=== PATIENT | female | born 1955 | race African-American/Black ===

== ENCOUNTER 2017-01-15 13:39 | Emergency (ER) | payer OTHER ==
[2017-01-15 13:44] VITALS: BMI 31.7
[2017-01-15 15:32] LABS: BILIRUBIN,URINE NEGATIVE (NEGATIVE); BLOOD/HEMOGLOBIN,URINE NEGATIVE (NEGATIVE); GLUCOSE, URINE NEGATIVE (NEGATIVE); KETONES,URINE NEGATIVE (NEGATIVE); LEUKOCYTE ESTERASE ,URINE 1+ (NEGATIVE); NITRITES,URINE NEGATIVE (NEGATIVE); PH,URINE 6.5 (5.0 - 8.0); PROTEIN,URINE NEGATIVE (NEGATIVE); UROBILINOGEN,URINE NORMAL (NORMAL)
--- NOTE | 2017-01-15 15:34 | DR.HTN ---
HPI - Time Seen Time seen: 17:20 - Primary Care Physician Primary Care Physician: ABDOUL - HPI Comment HPI Comment: PATIENT NOT FEELING WELL FOR FEW DAYS. WENT [facility] TO SEE PCP. BP MARKEDLY ELEVATED. GIVEN CLONIDINE AND SENT TO ED. PATIENT DID NOT TAKE HER DAILY BP MED TODAY. NO FEVER. DENIES DYSURIA. - Complaints Chief Complaint Doctors Comments: ELEVATED BLOOD PRESSURE, WEAK, NEAR SYNCOPE TODAY. Chief Complaint:: PT. C/O WEAKNESS AND HIGH BLOOD PRESSURE. PT. SEEN ANUJ FLOREZ, TODAY. PT'S B/P CHARRER WAS 229/125. PT. STATES SHE WAS GIVEN A CLONIDINE IN HER OFFICE, UNKNOWN DOSE. - Reviewed Nurses Notes Reviewed: Yes - Source History Provided: Patient - Mode of Arrival Mode of Arrival: Ambulatory - Timing Onset of Chief Complaint: 01/15/17 - Severity What was the maximum recorded B/P?: 229/125 Severity: Severe - Context Circumstances: Spontaneous Onset History of: Hypertension Treatment of HTN Prior to Arrival: Taking meds as prescribed - Associated Signs and Symptoms HTN Associated Signs and Symptoms: Weakness, Shortness of Breath PMH - PMH Past Medical History: Yes Past Medical History: Arthritis, GERD, Hypertension, Hypothyroidism Past Surgical History: Yes Surgical History: Hysterectomy - Family History History of Family Medical Conditions: Yes Family Medical History: Diabetes Mellitus, Cancer, [place], Coronary Artery Disease, Hypertension - Social History Does patient currently use any type of tobacco product: No Have you used tobacco products in the last 12 months: No Type of Tobacco Use: None Does any household member use tobacco: No Alcohol Use: None Do you use any recreational Drugs:: No Lives With: Family Lives Where: Home - infectious screening In the last 2 months have you had wt loss of >10#?: NO Have you had fever, night sweats or hemotysis?: No Have you traveled outside the country in the last 6 months?: No Isolation: Standard ROS - Review of Systems Constitutional: Weakness, Fatigue. negative: Chills, Fever Eyes: No Symptoms Reported. negative: Eye Pain, Discharge ENTM: negative: Ear Pain, Nose Discharge, Nose Congestion, Throat Pain Respiratoy: Short of Breath. negative: Productive Cough, Non-Productive Cough, Wheezing, Hemoptysis Cardiovascular: Chest Pain. negative: Edema, Palpitations, Syncope (NEAR SYNCOPE) Gastrointestinal/Abdominal: negative: Abdominal Pain, Diarrhea, Nausea, Vomiting Genitourinary: No Symptoms Reported. negative: Dysuria, Frequency, Hematuria Neurological: Weakness, Dizziness. negative: Headache Musculoskeletal: No Symptoms Reported Integumentary: No Symptoms Reported Hematologic/Lymphatic: No Symptoms Reported Endocrine: No Symptoms Reported All Other Systems: Reviewed and Negative PE - Vital Signs Vitals: Temperature 97.6 F Pulse Rate [Right Radial] 87 Pulse Rate 76 Respiratory Rate 18 Blood Pressure [Left Arm] 181/91 Blood Pressure 176/84 O2 Sat by Pulse Oximetry 100 - General Limitations: No Limitations General Appearance: Alert - Head Head Exam: Normal Inspection - Eyes Eye exam: Normal Appearance Pupils: Regular, Round: Bilateral, Reactive: Bilateral Sclera/Conjunctival: Normal Inspection: Bilateral - ENT ENT Exam: Normal Exam - Neck Neck Exam: Normal Inspection - Chest Chest Inspection: Symmetric Chest Wall Rise - Respiratory Respiratory Exam: Normal Lung Sounds Bilat Respiratory Exam: Bilateral Clear to Auscultation - Cardiovascular Cardiovascular Exam: Regular Rate, Normal Rhythm, Normal Heart Sounds - Abdominal Exam Abdominal Exam: Normal Bowel Sounds, Soft. negative: Tenderness - Extremities Extremities Exam: Normal Inspection - Back Back Exam: Normal Inspection - Neurologic Neurological Exam: Alert, Oriented X3, CN II-XII Intact, Normal Gait, Reflexes Normal. negative: Motor Sensory Deficit Speech: Fluid Speech Cranial Nerve Exam: EOM Function (II, III, IV, ): Normal, Facial Sensation (V) : Normal, Facial Palsy (VII): Normal, Gag reflex (XI): Normal, Spinal Accessory Function (XI): Normal, Tongue Deviation: Normal Cerebellar Function: Normal Gait Motor Strength - LUE: 5/5 Motor Strength - RUE: 5/5 Motor Strength - LLE: 5/5 Motor Strength - RLE: 5/5 Upper Motor Neuron Exam: Babinski Sign: Normal DTR: achilles tendon (L): 4+, achilles tendon (R): 4+, brachioradialis (L): 4+, brachioradialis (R): 4+, Patellar (L): 4+, patellar (R): 4+ - Psychiatric Psychiatric Exam: Normal Affect, Normal Mood - Skin Skin Exam: Normal Color MDM - Additional Information Obtained Additional Information Obtained From: Family - Differential Diagnosis Differential Diagnosis: Hypertensive emergency. negative: CHF (UTI, STREP INFECTION, PNEUMONIA, ) Course - Treatment Treatment: SEE ORDERS. MEDS FOR BP AND STREP GIVEN IN ED. - Education/Counseling Education/Counseling: Patient, Family, Education Educated On: Treatment, Diagnosis, Needs for Follow Up ROR - Labs Reviewed Laboratory Results Reviewed?: Yes Result Diagrams: 01/15/17 15:33 01/15/17 15:33 Laboratory: WBC 7.7 X10^3/uL (3.6-10.0) 01/15/17 15:33 RBC 4.39 X10^6/uL (3.5-5.4) 01/15/17 15:33 Hgb 13.8 g/dL (12.0-16.0) 01/15/17 15:33 Hct 40.3 % (36.0-47.0) 01/15/17 15:33 MCV 91.7 fL (80.0-100.0) 01/15/17 15:33 MCH 31.4 pg (27.0-34.0) 01/15/17 15:33 MCHC 34.2 g/dL (33.0-35.0) 01/15/17 15:33 RDW 15.2 % (11.6-16.5) 01/15/17 15:33 Plt Count 244 X10^3/uL (150.0-450.0) 01/15/17 15:33 MPV 9.1 fL (7.4-11.0) 01/15/17 15:33 Neut % 49.3 % (42.0-75.0) 01/15/17 15:33 Lymph % 40.1 % (21.0-51.0) 01/15/17 15:33 [place] % 7.9 % (0.0-13.0) 01/15/17 15:33 Eos % 1.8 % (0.9-2.9) 01/15/17 15:33 Baso % 0.9 % (0.2-1.0) 01/15/17 15:33 Neut # 3.8 x10^3/uL (2.2-4.8) 01/15/17 15:33 Lymph # 3.1 X10^3/uL (1.3-2.9) H 01/15/17 15:33 [place] # 0.6 x10^3/uL (0.3-0.8) 01/15/17 15:33 Eos # 0.1 x10^3/uL (0.0-0.2) 01/15/17 15:33 Baso # 0.1 X10^3/uL (0.0-0.1) 01/15/17 15:33 Absolute Nucleated RBC 0.0 /100WBC 01/15/17 15:33 Sodium 141 mmol/L (136-145) 01/15/17 15:33 Corrected Sodium TNP 01/15/17 15:33 Potassium 3.7 mmol/L (3.5-5.1) 01/15/17 15:33 Chloride 103 mmol/L (98-107) 01/15/17 15:33 Carbon Dioxide 27.4 mmol/L (21-32) 01/15/17 15:33 BUN 16 mg/dL (7-18) 01/15/17 15:33 Creatinine 1.17 mg/dL (0.55-1.02) H 01/15/17 15:33 Est GFR (MDRD) Af Amer > 60 (>60) 01/15/17 15:33 Est GFR (MDRD) Non-Af 50 (>60) L 01/15/17 15:33 Glucose 81 mg/dL (65-99) 01/15/17 15:33 Calcium 9.4 mg/dL (8.5-10.1) 01/15/17 15:33 Corrected Calcium TNP 01/15/17 15:33 Total Bilirubin 0.40 mg/dL (0.2-1.0) 01/15/17 15:33 AST 23 Units/L (15-37) 01/15/17 15:33 ALT 19 Units/L (12-78) 01/15/17 15:33 Alkaline Phosphatase 80 Units/L (46-116) 01/15/17 15:33 Creatine Kinase 127 Units/L (26-192) 01/15/17 17:57 CK-MB (CK-2) < 1.0 ng/mL (0-4.0) 01/15/17 17:57 CK/CKMB % Calc 0.8 % (<4) 01/15/17 17:57 Troponin I 0.07 ng/mL (0-1.5) 01/15/17 17:57 Total Protein 7.9 g/dL (6.4-8.2) 01/15/17 15:33 Albumin 3.9 g/dL (3.4-5.0) 01/15/17 15:33 Globulin 4.0 g/dL (2.5-4.5) 01/15/17 15:33 Albumin/Globulin Ratio 1.0 Ratio (1.1-2.1) L 01/15/17 15:33 Specimen Type Clean catch urine 01/15/17 15:20 Urine Color Yellow (YELLOW) 01/15/17 15:20 Urine Appearance Clear (CLEAR) 01/15/17 15:20 Urine pH 6.5 (5.0 - 8.0) 01/15/17 15:20 Ur Specific [place] 1.010 (1.000-1.030) 01/15/17 15:20 Urine Protein Negative (NEGATIVE) 01/15/17 15:20 Urine Glucose (UA) Negative (NEGATIVE) 01/15/17 15:20 Urine Ketones Negative (NEGATIVE) 01/15/17 15:20 Urine Occult Blood Negative (NEGATIVE) 01/15/17 15:20 Urine Nitrite Negative (NEGATIVE) 01/15/17 15:20 Urine Bilirubin Negative (NEGATIVE) 01/15/17 15:20 Urine Urobilinogen Normal (NORMAL) 01/15/17 15:20 Ur Leukocyte Esterase 1+ (NEGATIVE) 01/15/17 15:20 Urine RBC 0-2 /HPF (NEGATIVE) 01/15/17 15:20 Urine WBC 0-2 /HPF (NEGATIVE) 01/15/17 15:20 Ur Squamous Epith Cells Negative /HPF (NEGATIVE) 01/15/17 15:20 Urine Bacteria Trace /HPF (NEGATIVE) 01/15/17 15:20 Granular Casts Few /LPF (NEGATIVE) 01/15/17 15:20 Urine Mucus Few /HPF (NEGATIVE) 01/15/17 15:20 Ur Culture Indicated? No/not indicated 01/15/17 15:20 Influenza Type A (PCR) Negative (NEGATIVE) 01/15/17 15:36 Influenza Type B (PCR) Negative (NEGATIVE) 01/15/17 15:36 Streptococcus Screen Positive (NEGATIVE) A 01/15/17 18:58 - Diagnosis Discharge Problem: Hypertension, Strep throat - Discharge Plan Disposition: 01 HOME, SELF-CARE Condition: Stable Prescriptions: Amoxicillin [Amoxil 875 mg] 875 mg PO Q12H #20 tab - Follow ups/Referrals Follow ups/Referrals: Derik Riggins [Primary Care Provider] - 3 days - Instructions Instructions: Strep Throat, [id number], Hypertension, [id number] Additional Instructions: RETURN TO ED IF WORSE. CHECK BP DAILY, CHART AND TAKE TO PCP. CONTINUE WITH MEDS AT HOME.
[2017-01-15 15:41] LABS: APPEARANCE,URINE CLEAR (CLEAR); BACTERIA,URINE TRACE /HPF (NEGATIVE); COLOR,URINE YELLOW (YELLOW); GRANULAR CASTS,URINE FEW /LPF (NEGATIVE); MUCUS,URINE FEW /HPF (NEGATIVE); RBC,URINE 0-2 /HPF (NEGATIVE); SQUAMOUS EPITHELIAL CELL,UR NEGATIVE /HPF (NEGATIVE)
[2017-01-15 15:43] LABS: BASOPHILS # (AUTO) 0.1 X10^3/uL (0.0-0.1); BASOPHILS % (AUTO) 0.9 % (0.2-1.0); EOSINOPHILS # (AUTO) 0.1 x10^3/uL (0.0-0.2); EOSINOPHILS % (AUTO) 1.8 % (0.9-2.9); HEMATOCRIT 40.3 % (36.0-47.0); HEMOGLOBIN 13.8 g/dL (12.0-16.0); LYMPHOCYTES # (AUTO) 3.1 X10^3/uL (1.3-2.9); LYMPHOCYTES % (AUTO) 40.1 % (21.0-51.0); MEAN CORPUSCULAR HEMOGLOBIN 31.4 pg (27.0-34.0); MEAN CORPUSCULAR HGB CONC 34.2 g/dL (33.0-35.0); MEAN CORPUSCULAR VOLUME 91.7 fL (80.0-100.0); MEAN PLATELET VOLUME 9.1 fL (7.4-11.0); MONOCYTES # (AUTO) 0.6 x10^3/uL (0.3-0.8); MONOCYTES % (AUTO) 7.9 % (0.0-13.0); NEUTROPHILS # (AUTO) 3.8 x10^3/uL (2.2-4.8); NEUTROPHILS % (AUTO) 49.3 % (42.0-75.0); PLATELET COUNT 244 X10^3/uL (150.0-450.0); RED BLOOD COUNT 4.39 X10^6/uL (3.5-5.4); RED CELL DISTRIBUTION WIDTH 15.2 % (11.6-16.5); WHITE BLOOD COUNT 7.7 X10^3/uL (3.6-10.0)
[2017-01-15 16:00] LABS: BLOOD UREA NITROGEN 16 mg/dL (7-18); CALCIUM 9.4 mg/dL (8.5-10.1); CARBON DIOXIDE 27.4 mmol/L (21-32); CHLORIDE 103 mmol/L (98-107); CREATININE 1.17 mg/dL (0.55-1.02); SODIUM 141 mmol/L (136-145); TROPONIN I 0.07 ng/mL (0-1.5); eGFR BLACK RACES > 60 (>60); eGFR NON BLACK RACES 50 (>60)
[2017-01-15 16:04] LABS: ALANINE AMINOTRANSFERASE 19 Units/L (12-78); ALBUMIN 3.9 g/dL (3.4-5.0); ALKALINE PHOSPHATASE 80 Units/L (46-116); ASPARTATE AMINO TRANSFERASE 23 Units/L (15-37); CKMB % 0.7 % (<4); CREATINE KINASE 146 Units/L (26-192); CREATINE KINASE MB < 1.0 ng/mL (0-4.0); TOTAL PROTEIN 7.9 g/dL (6.4-8.2)
[2017-01-15] MEDS ORDERED: NIFEDIPINE CAP 10 MG PO ONE (16:11)
[2017-01-15] MEDS ORDERED: NIFEDIPINE CAP 10 MG ONE (16:13)
[2017-01-15 18:25] LABS: CKMB % 0.8 % (<4); CREATINE KINASE 127 Units/L (26-192); CREATINE KINASE MB < 1.0 ng/mL (0-4.0); TROPONIN I 0.07 ng/mL (0-1.5)
[2017-01-15] MEDS ORDERED: CATAPRES TAB 0.2 MG PO ONE (19:05)
[2017-01-15] MEDS ORDERED: CATAPRES TAB 0.2 MG ONE (19:06)
[2017-01-15] MEDS ORDERED: AMOXIL CAP 500 MG PO ONE ×2 (19:27→19:33)
[2017-01-15 19:45] VITALS: BP 181/91
== END 2017-01-15 19:45 | disposition home or self-care (01) ==
LOC: ER 13:51
DX: I10 Essential (primary) hypertension (principal); J02.0 Streptococcal pharyngitis
CPT/HCPCS: 36415; 80053; 81001; 82550; 82553; 84484; 85025; 87502; 87880; 93005; 99283; 99284

== ENCOUNTER 2020-12-21 09:49 | Observation (INO) ==
[2020-12-21] MEDS ORDERED: NS 1,000 ML IV 1,000 ML IV SCH (13:00)
[2020-12-21 13:25] LABS: BASOPHILS # (AUTO) 0.1 X10^3/uL (0.0-0.1); BASOPHILS % (AUTO) 0.9 % (0.2-1.0); EOSINOPHILS # (AUTO) 0.2 x10^3/uL (0.0-0.2); EOSINOPHILS % (AUTO) 3.8 % (0.9-2.9); HEMATOCRIT 38.9 % (36.0-47.0); HEMOGLOBIN 13.1 g/dL (12.0-16.0); LYMPHOCYTES # (AUTO) 3.3 X10^3/uL (1.3-2.9); LYMPHOCYTES % (AUTO) 53.7 % (21.0-51.0); MEAN CORPUSCULAR HGB CONC 33.6 g/dL (33.0-35.0); MEAN CORPUSCULAR VOLUME 95.3 fL (80.0-100.0); MEAN PLATELET VOLUME 9.3 fL (7.4-11.0); MONOCYTES # (AUTO) 0.5 x10^3/uL (0.3-0.8); MONOCYTES % (AUTO) 7.5 % (0.0-13.0); NEUTROPHILS # (AUTO) 2.1 x10^3/uL (2.2-4.8); NEUTROPHILS % (AUTO) 34.1 % (42.0-75.0); PLATELET COUNT 206 X10^3/uL (150.0-450.0); RED BLOOD COUNT 4.08 X10^6/uL (3.5-5.4); RED CELL DISTRIBUTION WIDTH 14.6 % (11.6-16.5); WHITE BLOOD COUNT 6.1 X10^3/uL (3.6-10.0)
[2020-12-21 13:34] VITALS: BMI 27.8
[2020-12-21 13:58] LABS: ALANINE AMINOTRANSFERASE 28 Units/L (12-78); ALBUMIN 3.8 g/dL (3.4-5.0); ALKALINE PHOSPHATASE 64 Units/L (46-116); ASPARTATE AMINO TRANSFERASE 22 Units/L (15-37); BLOOD UREA NITROGEN 17 mg/dL (7-18); CALCIUM 9.5 mg/dL (8.5-10.1); CARBON DIOXIDE 26.8 mmol/L (21-32); CHLORIDE 105 mmol/L (98-107); CKMB % 0.8 % (<4); CREATINE KINASE 132 Units/L (26-192); CREATINE KINASE MB < 1.0 ng/mL (0-4.0); CREATININE 1.54 mg/dL (0.55-1.02); PLATELET MORPHOLOGY COMMENT NORMAL (NORMAL); SODIUM 142 mmol/L (136-145); TOTAL PROTEIN 7.8 g/dL (6.4-8.2); TROPONIN I 0.22 ng/mL (0-1.5); eGFR NON BLACK RACES 36 (>60)
--- NOTE | 2020-12-21 14:20 | RAD ---
HISTORY:Shortness of breath, hypertensionStudy: Single view chestComparison:NoneFindings:There is cardiomegaly suspected mild interstitial edema. No effusion or pneumothorax. Soft tissues are intact.IMPRESSION:Cardiomegaly with suspected interstitial edema.Electronically signed by: VÍCTOR HOWELL (Dec 21, 2020 14:18:22)
[2020-12-21] MEDS: CATAPRES TAB 0.1 MG PO SCH ×2 (14:42→20:11)
[2020-12-21] MEDS: NORVASC TAB 10 MG PO SCH (14:42)
[2020-12-21 17:39] LABS: CREATINE KINASE 104 Units/L (26-192); CREATINE KINASE MB < 1.0 ng/mL (0-4.0); TROPONIN I 0.22 ng/mL (0-1.5)
--- NOTE | 2020-12-21 18:08 | RAD ---
History: Central line placementStudy: Single-view chestComparison: Earlier same dayFINDINGS/IMPRESSION:No CVL is visualized. Lungs are clear. No pneumothorax. Stable cardiomegaly and interstitial prominence.Electronically signed by: VÍCTOR HOWELL (Dec 21, 2020 18:06:26)
[2020-12-21] MEDS: NORCO 5/325 MG TAB PO PRN (20:11)
[2020-12-21 21:21] LABS: CKMB % 0.9 % (<4); CREATINE KINASE 116 Units/L (26-192); CREATINE KINASE MB < 1.0 ng/mL (0-4.0); TROPONIN I 0.26 ng/mL (0-1.5)
[2020-12-22] MEDS: NORCO 5/325 MG TAB PO PRN ×2 (05:14→17:38)
[2020-12-22 06:38] LABS: BASOPHILS # (AUTO) 0.1 X10^3/uL (0.0-0.1); BASOPHILS % (AUTO) 0.9 % (0.2-1.0); EOSINOPHILS # (AUTO) 0.3 x10^3/uL (0.0-0.2); EOSINOPHILS % (AUTO) 4.2 % (0.9-2.9); HEMOGLOBIN 11.3 g/dL (12.0-16.0); LYMPHOCYTES # (AUTO) 2.8 X10^3/uL (1.3-2.9); LYMPHOCYTES % (AUTO) 42.1 % (21.0-51.0); MEAN CORPUSCULAR HEMOGLOBIN 32.3 pg (27.0-34.0); MEAN CORPUSCULAR HGB CONC 34.2 g/dL (33.0-35.0); MEAN CORPUSCULAR VOLUME 94.4 fL (80.0-100.0); MEAN PLATELET VOLUME 9.2 fL (7.4-11.0); MONOCYTES # (AUTO) 0.5 x10^3/uL (0.3-0.8); MONOCYTES % (AUTO) 8.1 % (0.0-13.0); NEUTROPHILS % (AUTO) 44.7 % (42.0-75.0); PLATELET COUNT 193 X10^3/uL (150.0-450.0); RED CELL DISTRIBUTION WIDTH 14.3 % (11.6-16.5); WHITE BLOOD COUNT 6.6 X10^3/uL (3.6-10.0)
[2020-12-22 06:52] LABS: ALANINE AMINOTRANSFERASE 20 Units/L (12-78); ALBUMIN 3.2 g/dL (3.4-5.0); ALKALINE PHOSPHATASE 54 Units/L (46-116); ASPARTATE AMINO TRANSFERASE 15 Units/L (15-37); BLOOD UREA NITROGEN 20 mg/dL (7-18); CALCIUM 8.8 mg/dL (8.5-10.1); CARBON DIOXIDE 25.9 mmol/L (21-32); CHLORIDE 106 mmol/L (98-107); COR CA(FOR HYPOALB) 9.4 mg/dL (8.5-10.1); CREATINE KINASE 104 Units/L (26-192); CREATINE KINASE MB < 1.0 ng/mL (0-4.0); SODIUM 139 mmol/L (136-145); TOTAL PROTEIN 6.6 g/dL (6.4-8.2); TROPONIN I 0.29 ng/mL (0-1.5); eGFR NON BLACK RACES 37 (>60)
[2020-12-22] MEDS: NORVASC TAB 10 MG PO SCH (09:21)
[2020-12-22] MEDS: CATAPRES TAB 0.1 MG PO SCH (09:21)
--- NOTE | 2020-12-22 10:12 | DR.H&P ---
H&P - History & Physical for Day of: H&P Date: 12/21/20 - Chief Complaint Chief Complaint: SHORNESS OF BREATH - History of Present Illness History of Present Illness: IS A 65 YEAR OLD PATIENT OF OURS WHO WAS A DIRECT ADMISSION DUE TO COMPLAINTS OF SEVERE SHORTNESS OF BREATH. PATIENT REPORTS A PERSISTENT INCREASE IN SHORTNESS OF BREATH FOR THREE DAYS PRIOR TO ADMISSION. PATIENT DENIES ANY CARDIAC HISTORY OTHER THAN HTN. HER PMH INCLUDES CVA, HTN, ASTHMA, KIDNEY STONES, RENAL DISEASE, HYPOTHYROIDISM, RENAL CELL CARCINOMA, , HYSTERECTOMY, AND LEFT NEPHRECTOMY. ON ARRIVAL TO THE HOSPITAL, HER VITALS WERE 97.8-48-26-100%-216/102. LABS WERE OBTAINED. ABNORMAL LAB VALUES INCLUDE THE FOLLOWING: CREATININE 1.54, GFR 43, BNP 896. HER CARDIAC ENZYMES WERE WITHIN NORMAL LIMITS. A CHEST XRAY WAS OBTAINED AND REVEALED: CARDIOMEGALY WITH SUSPECTED INTERSTITIAL EDEMA. ECHO REVEALED: EJECTION FRACTION OF 17%, RVSP 45mmHg, MODERATE MITRAL REGURGITATION, MODERATE PULMONARY HTN. EKG REVEALED: SINUS BRADYCARDIA WITH HR 47. ON ADMISSION, SHE WAS STARTED ON NORMAL SALINE AT [facility], NORCO 5/325MG PO Q6H PRN PAIN, AND HER HOME MEDICATIONS OF CLONIDINE AND AMLODIPINE WERE RESUMED. HER BLOOD PRESSURE DECREASED TO 189/90. ON MORNING ROUNDS, PATIENT CONTINUED WITH SHORTNESS OF BREATH. HER VITALS UPON MORNING ROUNDS WERE 98.0-50-18-100%-163/86. CARDIAC ENZYMES AND EKGS WERE NORMAL THROUGHOUT THE NIGHT. HER BNP THIS MORNING WAS 566. DECISION WAS MADE TO DISCONTINUE THE AMLODIPINE AND CLONIDINE. WE STARTED LASIX 20MG IV X12H AND ENTRESTO 24/26MG PO BID. OTHERWISE, WE PLANNED TO FOLLOW UP WITH AM LABS AND CHEST XRAY AND CONTINUE TO MONITOR. TIME SPENT ON CLINICAL ASSESSMENT, REVIEWING LABS AND IMAGING, DECISION MAKING, AND DOCUMENTATION GREATER THAN 75 MINUTES. - Past Medical History Past Medical History: Arthritis, Asthma, CVA, GERD, Hypertension, Hypothyroidism, Kidney Stones, Renal Disease Additional Medical History: RENAL CELL CARCINOMA - Past Surgical History Surgical History: , Hysterectomy - Family History Family Medical History: Cancer, Coronary Artery Disease, Hypertension - Social History Does patient currently use any type of tobacco product: No Have you used tobacco products in the last 12 months: No Alcohol Use: None Drug Use: None - Medications Home Medications: No Known Drug Allergies Allergy (Verified 01/15/17 13:45) CONTINUE taking the following medications RX: alprazolam 0.5 mg PO BID PRN 12/21/20 [History] RX: cholecalciferol (vitamin D3) 50,000 unit PO WEEKLY 12/21/20 [History] RX: clonidine HCl 0.1 mg PO BID 12/21/20 [History] RX: cyclobenzaprine 10 mg PO HS 12/21/20 [History] RX: levothyroxine 100 mcg PO DAILY 12/21/20 [History] - Review of Systems Constitutional: Weakness Eyes: No Symptoms Reported ENT: No Symptoms Reported Respiratory: Shortness of Breath, SOB with Excertion Cardiovascular: No Symptoms Reported Gastrointestinal: No Symptoms Reported Genitourinary: No Symptoms Reported Musculoskeletal: No Symptoms Reported Skin: No Symptoms Reported Neurological: Weakness - Physical Exam Vital Signs: Temperature 98.0 F Pulse Rate [Left Radial] 50 Respiratory Rate 18 Blood Pressure [Left Arm] 163/86 Blood Pressure 181/91 O2 Sat by Pulse Oximetry 100 Oriented: Normal Eyes: Normal Ear: Normal Nose: Normal Throat: Normal Respiratory: Diminished Throughout Cardiovascular: Normal : Normal Auscultation: Bowel Sounds: Normal Palpation: Normal Tenderness: Normal Skin: Normal Musculoskeletal: Normal Psychiatric: Normal Mood Description: Calm Affect: Normal Speech Pattern: Clear - Assessment/Plan (1) Congestive heart failure Qualifiers: Heart failure type: unspecified Heart failure chronicity: acute Qualified Code(s): I50.9 - Heart failure, unspecified Status: Acute Plan: ADMIT, LASIX 20MG IV BID, ENTRESTO 24/26MG PO BID, CONTINUE TO MONITOR (2) Shortness of breath Status: Acute - Allergies Allergies/Adverse Reactions: Allergies Allergy/AdvReac Type Severity Reaction Status Date / Time No Known Drug Allergies Allergy Verified 01/15/17 13:45
[2020-12-22] MEDS: ENTRESTO 24/26 MG TAB PO SCH ×2 (13:45→20:36)
[2020-12-22] MEDS: LASIX IVP SCH ×2 (13:46→17:20)
[2020-12-22] MEDS: SYNTHROID 100 mcg TAB PO SCH (16:10)
[2020-12-22] MEDS: MORPHINE SULFATE INJ 2 MG INJ IVP PRN (20:42)
--- NOTE | 2020-12-23 05:43 | RAD ---
PROCEDURE: Chest X-ray 1 View .HISTORY: SEVERE SHORTNESS OF BREATH .TECHNIQUE: AP portable done at 5:03 a.m..COMPARISON: 12/21/2020.TECHNICAL QUALITY: Satisfactory .FINDINGS:Normal size heart .Mediastinum and hilar regions show no masses or lymphadenopathy .Normal central vascularity .No pulmonary consolidation, masses, pleural fluid, or pneumothorax .No acute bony abnormality .IMPRESSION:No active cardiopulmonary disease .Electronically signed by: Ha Curiel (Dec 23, 2020 05:41:33)
[2020-12-23 06:11] LABS: BASOPHILS # (AUTO) 0.1 X10^3/uL (0.0-0.1); EOSINOPHILS # (AUTO) 0.3 x10^3/uL (0.0-0.2); EOSINOPHILS % (AUTO) 4.4 % (0.9-2.9); HEMATOCRIT 37.6 % (36.0-47.0); HEMOGLOBIN 12.7 g/dL (12.0-16.0); LYMPHOCYTES # (AUTO) 2.7 X10^3/uL (1.3-2.9); LYMPHOCYTES % (AUTO) 46.1 % (21.0-51.0); MEAN CORPUSCULAR HEMOGLOBIN 31.8 pg (27.0-34.0); MEAN CORPUSCULAR HGB CONC 33.7 g/dL (33.0-35.0); MEAN CORPUSCULAR VOLUME 94.4 fL (80.0-100.0); MEAN PLATELET VOLUME 8.7 fL (7.4-11.0); MONOCYTES # (AUTO) 0.5 x10^3/uL (0.3-0.8); MONOCYTES % (AUTO) 8.7 % (0.0-13.0); NEUTROPHILS # (AUTO) 2.3 x10^3/uL (2.2-4.8); NEUTROPHILS % (AUTO) 39.8 % (42.0-75.0); PLATELET COUNT 218 X10^3/uL (150.0-450.0); RED BLOOD COUNT 3.98 X10^6/uL (3.5-5.4); WHITE BLOOD COUNT 5.8 X10^3/uL (3.6-10.0)
[2020-12-23 06:37] LABS: ALANINE AMINOTRANSFERASE 19 Units/L (12-78); ALBUMIN 3.4 g/dL (3.4-5.0); ALKALINE PHOSPHATASE 58 Units/L (46-116); ASPARTATE AMINO TRANSFERASE 8 Units/L (15-37); BLOOD UREA NITROGEN 19 mg/dL (7-18); CALCIUM 8.6 mg/dL (8.5-10.1); CARBON DIOXIDE 28.2 mmol/L (21-32); CHLORIDE 104 mmol/L (98-107); CREATININE 1.36 mg/dL (0.55-1.02); SODIUM 140 mmol/L (136-145); TOTAL PROTEIN 7.1 g/dL (6.4-8.2); eGFR NON BLACK RACES 41 (>60)
[2020-12-23] MEDS: SYNTHROID 100 mcg TAB PO SCH (06:46)
[2020-12-23] MEDS: LASIX IVP SCH ×2 (09:23→18:09)
[2020-12-23] MEDS: ENTRESTO 24/26 MG TAB PO SCH ×2 (09:23→21:02)
[2020-12-23] MEDS: MORPHINE SULFATE INJ 2 MG INJ IVP PRN ×2 (13:43→21:03)
[2020-12-23] MEDS: CATAPRES TAB 0.1 MG PO SCH ×2 (13:43→21:02)
[2020-12-23] MEDS: XANAX PO PRN (21:02)
[2020-12-24 04:52] LABS: BASOPHILS # (AUTO) 0.1 X10^3/uL (0.0-0.1); EOSINOPHILS # (AUTO) 0.2 x10^3/uL (0.0-0.2); EOSINOPHILS % (AUTO) 3.5 % (0.9-2.9); HEMATOCRIT 37.7 % (36.0-47.0); LYMPHOCYTES # (AUTO) 2.8 X10^3/uL (1.3-2.9); LYMPHOCYTES % (AUTO) 44.7 % (21.0-51.0); MEAN CORPUSCULAR HEMOGLOBIN 32.2 pg (27.0-34.0); MEAN CORPUSCULAR HGB CONC 34.4 g/dL (33.0-35.0); MEAN CORPUSCULAR VOLUME 93.5 fL (80.0-100.0); MEAN PLATELET VOLUME 8.6 fL (7.4-11.0); MONOCYTES # (AUTO) 0.6 x10^3/uL (0.3-0.8); MONOCYTES % (AUTO) 9.7 % (0.0-13.0); NEUTROPHILS # (AUTO) 2.6 x10^3/uL (2.2-4.8); NEUTROPHILS % (AUTO) 41.1 % (42.0-75.0); PLATELET COUNT 212 X10^3/uL (150.0-450.0); RED BLOOD COUNT 4.03 X10^6/uL (3.5-5.4); WHITE BLOOD COUNT 6.3 X10^3/uL (3.6-10.0)
[2020-12-24 05:00] LABS: ALANINE AMINOTRANSFERASE 16 Units/L (12-78); ALBUMIN 3.2 g/dL (3.4-5.0); ALKALINE PHOSPHATASE 58 Units/L (46-116); ASPARTATE AMINO TRANSFERASE 10 Units/L (15-37); BLOOD UREA NITROGEN 27 mg/dL (7-18); CHLORIDE 102 mmol/L (98-107); COR CA(FOR HYPOALB) 9.6 mg/dL (8.5-10.1); CREATININE 1.77 mg/dL (0.55-1.02); SODIUM 138 mmol/L (136-145); TOTAL PROTEIN 6.9 g/dL (6.4-8.2); eGFR NON BLACK RACES 31 (>60)
[2020-12-24] MEDS: SYNTHROID 100 mcg TAB PO SCH (05:46)
[2020-12-24] MEDS: CATAPRES TAB 0.1 MG PO SCH ×2 (09:33→20:52)
[2020-12-24] MEDS: LASIX IVP SCH ×2 (09:33→16:58)
[2020-12-24] MEDS: ENTRESTO 24/26 MG TAB PO SCH ×2 (09:33→20:00)
--- NOTE | 2020-12-24 09:55 | RAD ---
HISTORYSEVERE SHORTNESS OF BREATH Relevant Clinical InformationSTUDYCHEST, 1 VIEWCOMPARISONPortable chest December 23, 2020.FINDINGSThe trachea is midline. The cardiac silhouette is unremarkable. The lungs are clear without focal infiltrate or effusion but there is a new small loculated pneumothorax in the right lung base pleural separation is a maximum of 1.6 cm.. The bony thorax is unremarkable. A right-sided central venous catheter has been placed. The tip is in the right atrium. The catheter was present on yesterday's exam as well as prior exam December 21, 2020.IMPRESSIONNew small loculated pneumothorax right lung base less than 5 percent without tension. Report will be called to the ordering clinician or nurse by [facility] staff.Electronically signed by: KATHIA MENSAH (Dec 24, 2020 09:10:22)
[2020-12-24] MEDS: MORPHINE SULFATE INJ 2 MG INJ IVP PRN (20:00)
[2020-12-24] MEDS: XANAX PO PRN (23:33)
[2020-12-25 05:26] LABS: BASOPHILS # (AUTO) 0.1 X10^3/uL (0.0-0.1); BASOPHILS % (AUTO) 1.1 % (0.2-1.0); EOSINOPHILS # (AUTO) 0.3 x10^3/uL (0.0-0.2); EOSINOPHILS % (AUTO) 4.2 % (0.9-2.9); HEMATOCRIT 35.7 % (36.0-47.0); HEMOGLOBIN 12.3 g/dL (12.0-16.0); LYMPHOCYTES % (AUTO) 46.7 % (21.0-51.0); MEAN CORPUSCULAR HEMOGLOBIN 32.2 pg (27.0-34.0); MEAN CORPUSCULAR HGB CONC 34.6 g/dL (33.0-35.0); MEAN CORPUSCULAR VOLUME 93.1 fL (80.0-100.0); MEAN PLATELET VOLUME 8.6 fL (7.4-11.0); MONOCYTES # (AUTO) 0.6 x10^3/uL (0.3-0.8); MONOCYTES % (AUTO) 9.7 % (0.0-13.0); NEUTROPHILS # (AUTO) 2.4 x10^3/uL (2.2-4.8); NEUTROPHILS % (AUTO) 38.3 % (42.0-75.0); PLATELET COUNT 201 X10^3/uL (150.0-450.0); RED BLOOD COUNT 3.83 X10^6/uL (3.5-5.4); RED CELL DISTRIBUTION WIDTH 14.1 % (11.6-16.5); WHITE BLOOD COUNT 6.4 X10^3/uL (3.6-10.0)
[2020-12-25] MEDS: SYNTHROID 100 mcg TAB PO SCH (05:29)
[2020-12-25 05:43] LABS: CALCIUM 8.6 mg/dL (8.5-10.1); CARBON DIOXIDE 28.9 mmol/L (21-32); COR CA(FOR HYPOALB) 9.4 mg/dL (8.5-10.1); CREATININE 1.65 mg/dL (0.55-1.02); TOTAL PROTEIN 6.5 g/dL (6.4-8.2)
--- NOTE | 2020-12-25 05:46 | RAD ---
PROCEDURE: Chest X-ray 1 View .HISTORY: Dyspnea.TECHNIQUE: AP view .COMPARISON: 12/24/2020.TECHNICAL QUALITY: Satisfactory .FINDINGS:Normal size heart .Mediastinum and hilar regions show no masses or lymphadenopathy .Normal central vascularity .No pulmonary consolidation, masses, pleural fluid, or pneumothorax .No acute bony abnormality .IMPRESSION:No active cardiopulmonary disease .Electronically signed by: Ha Curiel (Dec 25, 2020 05:44:26)
--- NOTE | 2020-12-25 08:23 | PCM.PROG ---
Progress Note Progress Note for Day of Date of Exam: 12/23/20 Subjective Subjective: IS A 65 YEAR OLD PATIENT OF DR SCHREIBER, WHO WAS A DIRECT ADMISSION FOR CHF EXACERBATION WITHOUT PRIOR CARDIAC HISTORY OTHER THAN HTN. HER PMH INCLUDES CVA, HTN, ASTHMA, KIDNEY STONES, RENAL DISEASE, HYPOTHYROIDISM, RENAL CELL CARCINOMA, , HYSTERECTOMY, AND LEFT NEPHRECTOMY. THIS MORNING SHE REPORTS STILL HAVING SOME SHORTNESS OF BREATH. LABS/IMAGING: WBC 5.8, HGB 12.7, PLT 218, NA 140, K 3.7, CREATININE 1.36, GLUCOSE 92, A CHEST XRAY WAS OBTAINED AND REVEALED: NO ACTIVE CARDIOPULMONARY DISEASE. ECHO REVEALED: EJECTION FRACTION OF 17%, RVSP 45mmHg, MODERATE MITRAL REGURGITATION, MODERATE PULMONARY HTN. PT IS CURRENTLY ON NORMAL SALINE AT [facility], NORCO 5/325MG PO Q6H PRN PAIN, AND HER HOME MEDICATIONS OF CLONIDINE. SHE IS RECEIVING LASIX 20MG IV X12H AND WAS STARTED ON ENTRESTO 24/26MG PO BID. OTHERWISE, WE PLANNED TO FOLLOW UP WITH AM LABS AND CHEST XRAY AND CONTINUE TO MONITOR. Past Medical Family Social History Past Med/Fam/Surg Hx: No changes since H&P Allergies: Allergies No Known Drug Allergies Allergy (Verified 01/15/17 13:45) Review of Systems ROS: No change since H&P Vital Signs and I&O's Vital Signs: Temperature 98.6 F Pulse Rate [Radial] 67 Pulse Rate [Left Radial] 51 Respiratory Rate 18 Blood Pressure [Right Arm] 130/85 Blood Pressure [Left Arm] 178/91 Blood Pressure 181/91 O2 Sat by Pulse Oximetry 97 Intake and Output: Intake & Output 12/22/20 12/23/20 12/24/20 12/25/20 23:59 23:59 23:59 23:59 Intake Total 1460 / 1460 2640 / 2640 1430 / 1430 1370 / 1370 Balance 1460 / 1460 2640 / 2640 1430 / 1430 1370 / 1370 Physical Exam Oriented: Normal Eyes: Normal Ear: Normal Nose: Normal Throat: Normal Respiratory: Diminished Cardiovascular: Normal : Normal Auscultation: Bowel Sounds: Normal Tenderness: Normal Skin: Normal Musculoskeletal: Normal Psychiatric: Normal Mood Description: Calm Affect: Normal Speech Pattern: Clear and Appropriate Laboratory and Diagnostics Result Diagrams: 12/25/20 04:52 12/25/20 04:52 Labs: Laboratory WBC 6.4 X10^3/uL (3.6-10.0) 12/25/20 04:52 RBC 3.83 X10^6/uL (3.5-5.4) 12/25/20 04:52 Hgb 12.3 g/dL (12.0-16.0) 12/25/20 04:52 Hct 35.7 % (36.0-47.0) L 12/25/20 04:52 MCV 93.1 fL (80.0-100.0) 12/25/20 04:52 MCH 32.2 pg (27.0-34.0) 12/25/20 04:52 MCHC 34.6 g/dL (33.0-35.0) 12/25/20 04:52 RDW 14.1 % (11.6-16.5) 12/25/20 04:52 Plt Count 201 X10^3/uL (150.0-450.0) 12/25/20 04:52 Plt Count Comment Adequate (ADEQUATE) 12/21/20 13:09 MPV 8.6 fL (7.4-11.0) 12/25/20 04:52 Neut % (Auto) 38.3 % (42.0-75.0) L 12/25/20 04:52 Lymph % (Auto) 46.7 % (21.0-51.0) 12/25/20 04:52 [place] % (Auto) 9.7 % (0.0-13.0) 12/25/20 04:52 Eos % (Auto) 4.2 % (0.9-2.9) H 12/25/20 04:52 Baso % (Auto) 1.1 % (0.2-1.0) H 12/25/20 04:52 Neut # (Auto) 2.4 x10^3/uL (2.2-4.8) 12/25/20 04:52 Lymph # (Auto) 3.0 X10^3/uL (1.3-2.9) H 12/25/20 04:52 [place] # (Auto) 0.6 x10^3/uL (0.3-0.8) 12/25/20 04:52 Eos # (Auto) 0.3 x10^3/uL (0.0-0.2) H 12/25/20 04:52 Baso # (Auto) 0.1 X10^3/uL (0.0-0.1) 12/25/20 04:52 Absolute Nucleated RBC 0.1 /100WBC 12/25/20 04:52 Total Counted 100 12/21/20 13:09 Neutrophils % (Manual) 35 % (39-76) L 12/21/20 13:09 Lymphocytes % (Manual) 59 % (13-43) H 12/21/20 13:09 Monocytes % (Manual) 5 % (4-9) 12/21/20 13:09 Eosinophils % (Manual) 1 % (0-6) 12/21/20 13:09 Plt Morphology Comment Normal (NORMAL) 12/21/20 13:09 RBC Morphology Normal (NORMAL) 12/21/20 13:09 Sodium 140 mmol/L (136-145) 12/25/20 04:52 Corrected Sodium 140 mmol/L (136-145) 12/25/20 04:52 Potassium 3.4 mmol/L (3.5-5.1) L 12/25/20 04:52 Chloride 103 mmol/L (98-107) 12/25/20 04:52 Carbon Dioxide 28.9 mmol/L (21-32) 12/25/20 04:52 BUN 30 mg/dL (7-18) H 12/25/20 04:52 Creatinine 1.65 mg/dL (0.55-1.02) H 12/25/20 04:52 Est GFR (MDRD) Af Amer 40 (>60) L 12/25/20 04:52 Est GFR (MDRD) Non-Af 33 (>60) L 12/25/20 04:52 Glucose 118 mg/dL (65-99) H 12/25/20 04:52 Calcium 8.6 mg/dL (8.5-10.1) 12/25/20 04:52 Corrected Calcium 9.4 mg/dL (8.5-10.1) 12/25/20 04:52 Magnesium 1.9 mg/dL (1.7-2.9) 12/25/20 04:52 Total Bilirubin 0.20 mg/dL (0.2-1.0) 12/25/20 04:52 AST 13 Units/L (15-37) L 12/25/20 04:52 ALT 16 Units/L (12-78) 12/25/20 04:52 Alkaline Phosphatase 62 Units/L (46-116) 12/25/20 04:52 Creatine Kinase 104 Units/L (26-192) 12/22/20 05:56 CK-MB (CK-2) < 1.0 ng/mL (0-4.0) 12/22/20 05:56 CK/CKMB % Calc 1.0 % (<4) 12/22/20 05:56 Troponin I 0.29 ng/mL (0-1.5) 12/22/20 05:56 B-Natriuretic Peptide 103 pg/mL (0-79) H 12/25/20 04:52 Total Protein 6.5 g/dL (6.4-8.2) 12/25/20 04:52 Albumin 3.0 g/dL (3.4-5.0) L 12/25/20 04:52 Globulin 3.5 g/dL (2.5-4.5) 12/25/20 04:52 Albumin/Globulin Ratio 0.9 Ratio (1.1-2.1) L 12/25/20 04:52 SARS-CoV-2 (PCR) Negative (NEGATIVE) 12/21/20 11:17 Influenza Type A (PCR) Negative (NEGATIVE) 12/21/20 11:17 Influenza Type B (PCR) Negative (NEGATIVE) 12/21/20 11:17 RSV (PCR) Negative (NEGATIVE) 12/21/20 11:17 Plan (1) Congestive heart failure: Status: Acute Qualifiers: Heart failure chronicity: acute Heart failure type: unspecified Qualified Code(s): I50.9 - Heart failure, unspecified Plan: ADMIT, LASIX 20MG IV BID, ENTRESTO 24/26MG PO BID, CONTINUE TO MONITOR (2) Shortness of breath: Status: Acute
[2020-12-25] MEDS: LASIX IVP SCH (08:29)
[2020-12-25] MEDS: CATAPRES TAB 0.1 MG PO SCH (08:29)
[2020-12-25] MEDS: ENTRESTO 24/26 MG TAB PO SCH (08:29)
--- NOTE | 2020-12-25 08:35 | PCM.PROG ---
Progress Note Progress Note for Day of Date of Exam: 12/24/20 Subjective Subjective: IS A 65 YEAR OLD PATIENT OF DR SCHREIBER, WHO WAS A DIRECT ADMISSION FOR CHF EXACERBATION WITHOUT PRIOR CARDIAC HISTORY OTHER THAN HTN. HER PMH INCLUDES CVA, HTN, ASTHMA, KIDNEY STONES, RENAL DISEASE, HYPOTHYROIDISM, RENAL CELL CARCINOMA, , HYSTERECTOMY, AND LEFT NEPHRECTOMY. THIS MORNING SHE REPORTS SIGNIFICANT IMPROVEMENT IN HER SYMPTOMS AND DOES NOT FEEL SHORT OF BREATH. LABS/IMAGING: WBC 6.3, HGB 13, PLT 212, NA 138, K 3.7, CREATININE 1.77, GLUCOSE 106, A CHEST XRAY WAS OBTAINED AND REVEALED: New small loculated pneumothorax right lung base less than 5 percent without tension. Report will be called to the ordering clinician or nurse by [facility] staff. ECHO REVEALED: EJECTION FRACTION OF 17%, RVSP 45mmHg, MODERATE MITRAL REGURGITATION, MODERATE PULMONARY HTN. PT IS CURRENTLY ON NORMAL SALINE AT [facility], NORCO 5/325MG PO Q6H PRN PAIN, AND HER HOME MEDICATIONS OF CLONIDINE. SHE IS RECEIVING LASIX 20MG IV X12H AND NOW ALSO ON ENTRESTO 24/26MG PO BID. SURGERY CONSULTED-DR CHANDLER, RECOMMEND MONITORING OF SMALL NON-TENSION PNEUMOTHORAX. REPEAT CXR IN THE MORNING. WILL LIKELY NEED LIFEVEST AND CARDIOLOGY CONSULT DUE TO LOW EF IN THE SETTING OF NEW CHF DIAGNOSIS. OTHERWISE, WE PLANNED TO FOLLOW UP WITH AM LABS AND CHEST XRAY AND CONTINUE TO MONITOR. Past Medical Family Social History Past Med/Fam/Surg Hx: No changes since H&P Allergies: Allergies No Known Drug Allergies Allergy (Verified 01/15/17 13:45) Review of Systems ROS: No change since H&P Vital Signs and I&O's Vital Signs: Temperature 98.6 F Pulse Rate [Radial] 67 Pulse Rate [Left Radial] 51 Respiratory Rate 18 Blood Pressure [Right Arm] 130/85 Blood Pressure [Left Arm] 178/91 Blood Pressure 181/91 O2 Sat by Pulse Oximetry 97 Intake and Output: Intake & Output 12/22/20 12/23/20 12/24/20 12/25/20 23:59 23:59 23:59 23:59 Intake Total 1460 / 1460 2640 / 2640 1430 / 1430 1370 / 1370 Balance 1460 / 1460 2640 / 2640 1430 / 1430 1370 / 1370 Physical Exam Oriented: Normal Eyes: Normal Ear: Normal Nose: Normal Throat: Normal Respiratory: Diminished Cardiovascular: Normal : Normal Auscultation: Bowel Sounds: Normal Tenderness: Normal Skin: Normal Musculoskeletal: Normal Psychiatric: Normal Mood Description: Calm Affect: Normal Speech Pattern: Clear and Appropriate Laboratory and Diagnostics Result Diagrams: 12/25/20 04:52 12/25/20 04:52 Labs: Laboratory WBC 6.4 X10^3/uL (3.6-10.0) 12/25/20 04:52 RBC 3.83 X10^6/uL (3.5-5.4) 12/25/20 04:52 Hgb 12.3 g/dL (12.0-16.0) 12/25/20 04:52 Hct 35.7 % (36.0-47.0) L 12/25/20 04:52 MCV 93.1 fL (80.0-100.0) 12/25/20 04:52 MCH 32.2 pg (27.0-34.0) 12/25/20 04:52 MCHC 34.6 g/dL (33.0-35.0) 12/25/20 04:52 RDW 14.1 % (11.6-16.5) 12/25/20 04:52 Plt Count 201 X10^3/uL (150.0-450.0) 12/25/20 04:52 Plt Count Comment Adequate (ADEQUATE) 12/21/20 13:09 MPV 8.6 fL (7.4-11.0) 12/25/20 04:52 Neut % (Auto) 38.3 % (42.0-75.0) L 12/25/20 04:52 Lymph % (Auto) 46.7 % (21.0-51.0) 12/25/20 04:52 [place] % (Auto) 9.7 % (0.0-13.0) 12/25/20 04:52 Eos % (Auto) 4.2 % (0.9-2.9) H 12/25/20 04:52 Baso % (Auto) 1.1 % (0.2-1.0) H 12/25/20 04:52 Neut # (Auto) 2.4 x10^3/uL (2.2-4.8) 12/25/20 04:52 Lymph # (Auto) 3.0 X10^3/uL (1.3-2.9) H 12/25/20 04:52 [place] # (Auto) 0.6 x10^3/uL (0.3-0.8) 12/25/20 04:52 Eos # (Auto) 0.3 x10^3/uL (0.0-0.2) H 12/25/20 04:52 Baso # (Auto) 0.1 X10^3/uL (0.0-0.1) 12/25/20 04:52 Absolute Nucleated RBC 0.1 /100WBC 12/25/20 04:52 Total Counted 100 12/21/20 13:09 Neutrophils % (Manual) 35 % (39-76) L 12/21/20 13:09 Lymphocytes % (Manual) 59 % (13-43) H 12/21/20 13:09 Monocytes % (Manual) 5 % (4-9) 12/21/20 13:09 Eosinophils % (Manual) 1 % (0-6) 12/21/20 13:09 Plt Morphology Comment Normal (NORMAL) 12/21/20 13:09 RBC Morphology Normal (NORMAL) 12/21/20 13:09 Sodium 140 mmol/L (136-145) 12/25/20 04:52 Corrected Sodium 140 mmol/L (136-145) 12/25/20 04:52 Potassium 3.4 mmol/L (3.5-5.1) L 12/25/20 04:52 Chloride 103 mmol/L (98-107) 12/25/20 04:52 Carbon Dioxide 28.9 mmol/L (21-32) 12/25/20 04:52 BUN 30 mg/dL (7-18) H 12/25/20 04:52 Creatinine 1.65 mg/dL (0.55-1.02) H 12/25/20 04:52 Est GFR (MDRD) Af Amer 40 (>60) L 12/25/20 04:52 Est GFR (MDRD) Non-Af 33 (>60) L 12/25/20 04:52 Glucose 118 mg/dL (65-99) H 12/25/20 04:52 Calcium 8.6 mg/dL (8.5-10.1) 12/25/20 04:52 Corrected Calcium 9.4 mg/dL (8.5-10.1) 12/25/20 04:52 Magnesium 1.9 mg/dL (1.7-2.9) 12/25/20 04:52 Total Bilirubin 0.20 mg/dL (0.2-1.0) 12/25/20 04:52 AST 13 Units/L (15-37) L 12/25/20 04:52 ALT 16 Units/L (12-78) 12/25/20 04:52 Alkaline Phosphatase 62 Units/L (46-116) 12/25/20 04:52 Creatine Kinase 104 Units/L (26-192) 12/22/20 05:56 CK-MB (CK-2) < 1.0 ng/mL (0-4.0) 12/22/20 05:56 CK/CKMB % Calc 1.0 % (<4) 12/22/20 05:56 Troponin I 0.29 ng/mL (0-1.5) 12/22/20 05:56 B-Natriuretic Peptide 103 pg/mL (0-79) H 12/25/20 04:52 Total Protein 6.5 g/dL (6.4-8.2) 12/25/20 04:52 Albumin 3.0 g/dL (3.4-5.0) L 12/25/20 04:52 Globulin 3.5 g/dL (2.5-4.5) 12/25/20 04:52 Albumin/Globulin Ratio 0.9 Ratio (1.1-2.1) L 12/25/20 04:52 SARS-CoV-2 (PCR) Negative (NEGATIVE) 12/21/20 11:17 Influenza Type A (PCR) Negative (NEGATIVE) 12/21/20 11:17 Influenza Type B (PCR) Negative (NEGATIVE) 12/21/20 11:17 RSV (PCR) Negative (NEGATIVE) 12/21/20 11:17 Plan (1) Congestive heart failure: Status: Acute Qualifiers: Heart failure chronicity: acute Heart failure type: unspecified Qualified Code(s): I50.9 - Heart failure, unspecified Plan: ADMIT, LASIX 20MG IV BID, ENTRESTO 24/26MG PO BID, CONTINUE TO MONITOR (2) Shortness of breath: Status: Acute (3) Pneumothorax: Status: Acute
[2020-12-25] MEDS: MAGNESIUM SULFATE 1 GRAM/100 mL PREMIX 1 G/100 ML BAG IV PRN ×2 (09:27→10:58)
[2020-12-25 12:11] VITALS: BP 188/87
== END 2020-12-25 13:40 | disposition home or self-care (01) ==
LOC: MED/SURG
PROVIDERS: ADMIT Internal Medicine; ATTEND Internal Medicine
DX: I50.9 Heart failure, unspecified; Z20.822 Contact with and (suspected) exposure to COVID-19; J93.9 Pneumothorax, unspecified; I11.0 Hypertensive heart disease with heart failure; R06.02 Shortness of breath; R94.31 Abnormal electrocardiogram [ECG] [EKG]; E03.8 Other specified hypothyroidism